=== PATIENT | male | born 1925 | race Caucasian/White ===

== ENCOUNTER 2017-02-11 20:52 | Inpatient (IN) | payer MEDICARE, BC ==
[~2017-02-11] VITALS: Ht 182.9 cm; Wt 73.9 kg
[2017-02-11 21:00] VITALS: BP 164/91
--- NOTE | 2017-02-11 21:00 | NUR ---
admitted pt from [facility], arrived by rustam[place]ical[place], pt alert,oriented x2 , hard of hearing but wears bilateral hearing aid.daughter at bedside.pt noted unsteady gait when transferring from [place] to bed.pictures taken noted few scabs and ecchymosis from the fall.vss,afebrile, denies any pain. oriented to call light ,scd,bed alarm, tv control.verbalized understanding.will continue to monitor,all needs attended.
[2017-02-11] MEDS ORDERED: Z GUARD REMEDY PASTE 57 GM TUBE TOP PRN (21:30)
[2017-02-11] MEDS ORDERED: LEVE500T9 PO (22:32)
[2017-02-11] MEDS ORDERED: TEMA30CA PO (22:33)
[2017-02-11] MEDS ORDERED: VENL75CA56 PO (22:37)
[2017-02-11] MEDS ORDERED: CETI-102 PO (22:42)
[2017-02-11] MEDS ORDERED: CHOL200010 PO (22:42)
[2017-02-11] MEDS ORDERED: PROP80CA PO (22:42)
[2017-02-11] MEDS ORDERED: OMEP20CA10 PO (22:42)
[2017-02-11] MEDS ORDERED: FINA5TAB11 PO (22:42)
[2017-02-11] MEDS ORDERED: LEVO175T7 PO (22:42)
[2017-02-11] MEDS ORDERED: TEMAZEPAM 15 MG CAPSULE PO PRN (23:45)
[2017-02-12] MEDS ORDERED: TEMAZEPAM 15 MG CAPSULE ONE (00:10)
[2017-02-12] MEDS ORDERED: LEVE500T9 PO (02:49)
--- NOTE | 2017-02-12 06:00 | NUR ---
uneventful night, pt gets up to void but reminded to use urinal. got disoriented couple of times that pt removed his clothing.had 2 episode of blood after voiding but no blood clot in the urine.no bleeding this morning noted.kept bed alarm active, scd applied,will continue to monitor.
[2017-02-12] MEDS ORDERED: PROPRANOLOL LA 80 MG CAP.SA.24H PO SCH (09:00)
[2017-02-12] MEDS: METOPROLOL TARTRATE 25 MG TABLET PO SCH ×2 (09:00→21:33)
[2017-02-12] MEDS: AMLODIPINE 5 MG TABLET PO SCH (09:00)
[2017-02-12 09:14] VITALS: BP 154/67
[2017-02-12] MEDS: LEVETIRACETAM 500 MG TABLET PO SCH ×2 (09:27→16:27)
[2017-02-12] MEDS: FUROSEMIDE 20 MG TABLET PO SCH (09:27)
[2017-02-12] MEDS: VENLAFAXINE XR 75 MG CAP.SR.24H PO SCH (09:27)
[2017-02-12] MEDS: CHOLECALCIFEROL 1,000 UNIT TABLET PO SCH ×3 (09:28→16:27)
[2017-02-12] MEDS: CETIRIZINE HCL 10 MG TABLET PO SCH (09:28)
[2017-02-12] MEDS: LEVOTHYROXINE SODIUM 175 MCG TABLET PO SCH (09:33)
--- NOTE | 2017-02-12 10:06 | NUR ---
pt had decreased blood pressure of 101/43. pt not given bp meds due to decreased blood pressure. will reassess for complications.
--- NOTE | 2017-02-12 14:24 | NUR ---
REHAB TEAM CONFERENCE 02/12/17
--- NOTE | 2017-02-12 18:24 | NUR ---
pt shown no signs of sundowning during shift. no loc changes. pt seen to have tremors on movement. pt put on seizure precautions by dr boogie. pt takes pills whole during the day. pt ate 100% of meals and was assessed by pt and ot. pt is min assist on walking with a walker and moderate assist on transfers. pt seen to have redness on bleeding around shaft of penis and was present on admission. wound seen to have less bleeding and was resolving. pt has not been seen by the nurse practitioner home assessments. contacted but dr does not call back. family states that he is getting better when he arrived. family wanted a psych consult. dr phillips ordered a neurology consult. pt went on the urinal but not had a bm today. will endorse new orders to ventilated rib fitter nurse.
[2017-02-12] MEDS ORDERED: BISACODYL 5 MG TABLET.DR PO PRN (18:45)
[2017-02-12] MEDS: FINASTERIDE 5 MG TABLET PO SCH (18:50)
[2017-02-12 20:34] VITALS: BP 130/78
[2017-02-12] MEDS: TEMAZEPAM 30 MG CAPSULE PO PRN (21:33)
[2017-02-12] MEDS: ACETAMINOPHEN 325 MG TABLET PO PRN (21:53)
[2017-02-12] MEDS ORDERED: ACETAMINOPHEN 325 MG TABLET ONE (22:06)
[2017-02-13] MEDS: PANTOPRAZOLE SODIUM 40 MG TABLET.DR PO SCH (05:48)
[2017-02-13] MEDS: LEVOTHYROXINE SODIUM 175 MCG TABLET PO SCH (05:48)
--- NOTE | 2017-02-13 06:30 | NUR ---
pt visited by son in law, converses appropriately, complains of headache 08/02 and called Md to obtain order,given 2 tylenol, assisted to toilet, ambulated with walker, noted with tremors,slept well, vss,afebrile, all needs attended ,bed alarm active at all times.
[2017-02-13 07:20] LABS: BASOPHILS % (AUTO) 0.6 % (0.0-2.0); EOSINOPHILS # (AUTO) 0.1 K/uL (0.0-0.7); EOSINOPHILS % (AUTO) 2.4 % (0.0-7.0); HEMATOCRIT 38.6 % (40-50); HEMOGLOBIN 12.6 G/DL (14.0-18.0); LYMPHOCYTES # (AUTO) 0.7 K/UL (0.8-4.8); LYMPHOCYTES % (AUTO) 12.5 % (20.5-51.5); MEAN CORPUSCULAR HEMOGLOBIN 27.1 UUG (27.0-31.0); MEAN CORPUSCULAR HGB CONC 33 g/dL (32.0-37.0); MEAN CORPUSCULAR VOLUME 82.9 FL (82.0-92.0); MONOCYTES # (AUTO) 0.4 K/UL (0.1-1.30); MONOCYTES % (AUTO) 6.2 % (0.0-11.0); NEUTROPHILS # (AUTO) 4.6 K/UL (1.8-8.9); NEUTROPHILS % (AUTO) 78.3 % (38.5-71.5); PLATELET COUNT (AUTO) 83 K/UL (150-450); RED BLOOD CELL COUNT(AUTO) 4.66 MIL/UL (4.7-6.1); WHITE BLOOD COUNT (AUTO) 5.8 K/UL (4.0-11.2)
[2017-02-13 08:00] VITALS: BP 119/79
[2017-02-13 08:10] LABS: ALANINE AMINOTRANSFERASE 12 U/L (16-63); ALKALINE PHOSPHATASE 47 U/L (50-136); ASPARTATE AMINOTRANSFERASE 12 U/L (15-37); BILIRUBIN,TOTAL 0.5 mg/dL (0.2-1.0); CARBON DIOXIDE 32 mmol/L (21-32); CHLORIDE 105 mmol/L (98-107); CHOLESTEROL 137 mg/dL (<200); CREATININE 0.9 mg/dL (0.6-1.3); GLUCOSE 110 mg/dL (74-106); HDL CHOLESTEROL 40 mg/dL (40-60); MAGNESIUM 1.5 mg/dL (1.8-2.4); PHOSPHOROUS 4.1 mg/dL (2.5-4.9); TOTAL PROTEIN, SERUM 6.1 g/dL (6.4-8.2); TRIGLYCERIDES 174 MG/DL (30-150); UREA NITROGEN, BLOOD 14 mg/dL (7-18)
[2017-02-13] MEDS: METOPROLOL TARTRATE 25 MG TABLET PO SCH ×2 (08:42→20:43)
[2017-02-13] MEDS: VENLAFAXINE XR 75 MG CAP.SR.24H PO SCH (08:42)
[2017-02-13] MEDS: LEVETIRACETAM 500 MG TABLET PO SCH ×2 (08:42→17:33)
[2017-02-13] MEDS: AMLODIPINE 5 MG TABLET PO SCH (08:42)
[2017-02-13] MEDS: CHOLECALCIFEROL 1,000 UNIT TABLET PO SCH ×3 (08:42→17:33)
[2017-02-13] MEDS: CETIRIZINE HCL 10 MG TABLET PO SCH (08:43)
[2017-02-13] MEDS: FUROSEMIDE 20 MG TABLET PO SCH (08:43)
--- NOTE | 2017-02-13 08:45 | NUR ---
Received patient awake, alert and oriented. Dangle feet upon breakfast. Encouraged to call for needs and if he needs to use bathroom. Call light within reach.
[2017-02-13 08:53] LABS: THYROID STIMULATING HORMONE 5.851 mIU/mL (0.358-3.740)
[2017-02-13 09:44] LABS: EOSINOPHILS % (MANUAL) 2 % (0-8); LYMPHOCYTES % (MANUAL) 7 % (20-40); MONOCYTES % (MANUAL) 2 % (2-10); NEUTROPHILS % (MANUAL) 89 % (42-75)
--- NOTE | 2017-02-13 10:52 | NUR ---
Up with speech therapist. No discomfort or pain noted. Able to transfer with minimum assistance.
[2017-02-13] MEDS ORDERED: MAGNESIUM OXIDE 400 MG TABLET PO ONE (12:45)
--- NOTE | 2017-02-13 16:00 | NUR ---
WITH HEAD ACHE RATED 6/10. VSS. TYLENOL PRN GIVEN
[2017-02-13] MEDS: FINASTERIDE 5 MG TABLET PO SCH (17:33)
[2017-02-13] MEDS: ACETAMINOPHEN 325 MG TABLET PO PRN (17:33)
[2017-02-13 20:01] VITALS: BP 127/77
[2017-02-13] MEDS: TEMAZEPAM 30 MG CAPSULE PO PRN (20:43)
[2017-02-14] MEDS: PANTOPRAZOLE SODIUM 40 MG TABLET.DR PO SCH (05:52)
[2017-02-14] MEDS: LEVOTHYROXINE SODIUM 175 MCG TABLET PO SCH (05:52)
[2017-02-14 07:28] VITALS: BP 129/70
[2017-02-14] MEDS: CHOLECALCIFEROL 1,000 UNIT TABLET PO SCH ×3 (08:50→17:36)
[2017-02-14] MEDS: CETIRIZINE HCL 10 MG TABLET PO SCH (08:50)
[2017-02-14] MEDS: VENLAFAXINE XR 75 MG CAP.SR.24H PO SCH (08:50)
[2017-02-14] MEDS: FUROSEMIDE 20 MG TABLET PO SCH (08:50)
[2017-02-14] MEDS: LEVETIRACETAM 500 MG TABLET PO SCH ×2 (08:50→17:36)
[2017-02-14] MEDS: AMLODIPINE 5 MG TABLET PO SCH (08:50)
[2017-02-14] MEDS: METOPROLOL TARTRATE 25 MG TABLET PO SCH ×2 (08:51→21:17)
--- NOTE | 2017-02-14 15:56 | NUR ---
Bio: SW met with pt at beside to assess for needs and provide support. Pt is a 89-year-old male admitted to ARU for functional decline and impaired mobility after family found pt on the floor. Pt reported he had an accidental fall while trying to get out of bed. He stated that he hit his head and was unable to stand up. 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 Psych: Pt appeared alert and oriented x4 during interview. He presented in a motivated mood, but reported that he felt tired after doing physical therapy. Pt has been in the hospital since February 11, 2017. There is no mental illness history reported. Pt is pleasant, calm, and cooperative. Pt appears to be coping well and reported "everything is wonderful here." Social: Pt lives at home with his daughter and her family. Pt reports his family is very supportive, and that his daughter was the one who found him on the floor. Pt's daughter and son-in-law frequently visit pt in ARU. Pt stated that he would like to become more independent. He stated he would like to become stronger so that he can walk to the store to "buy rene" and do "important things." Per chart, pt had Access . Goals: Pt reports that his goal is to 'become stronger". SS: SW engaged in active listening. SW provided emotional support and counseling. SW will encourage pt to comply with rehab goals.
[2017-02-14] MEDS: FINASTERIDE 5 MG TABLET PO SCH (17:36)
--- NOTE | 2017-02-14 18:41 | NUR ---
no changes on med. pt changed as needed and used urinal as needed. wound on penis has improved and no signs of bleeding. pt continues to be well oriented compared to previous days. pt took meds as prescribed and participated in therapy. pt did not leave the bed when instructed. family visited and wanted eye medications brought from home. order put in system. awaiting pharmacy to verify .
[2017-02-14 19:43] VITALS: BP 124/73
[2017-02-14] MEDS: MAGNESIUM OXIDE 400 MG TABLET PO SCH (21:17)
[2017-02-14] MEDS: TEMAZEPAM 30 MG CAPSULE PO PRN (21:18)
[2017-02-14] MEDS: PRESERVISION AREDS 2 FORMULA PO SCH (23:19)
[2017-02-15] MEDS: LEVOTHYROXINE SODIUM 175 MCG TABLET PO SCH (06:09)
[2017-02-15] MEDS: PANTOPRAZOLE SODIUM 40 MG TABLET.DR PO SCH (06:10)
--- NOTE | 2017-02-15 06:30 | NUR ---
PT SLEPT WELL, USES URINAL OVERNIGHT.NO BM, REQUESTING TO GET SHAVED DID IT HIMSELF BUT NOTED STILL HAVING TREMORS,SO I TOOK OVER THE SHAVING. KEPT CLEAN AND DRY,ALL NEEDS ATTENDED.
[2017-02-15 07:30] VITALS: BP 117/71
--- NOTE | 2017-02-15 08:50 | NUR ---
Received patient awake, alert and oriented x3. No complaints of pain/ discomfort at the moment. Call light within reach. Encouraged to call for needs. Able to take medications as prescribed, tolerated breakfast well.
[2017-02-15] MEDS: VENLAFAXINE XR 75 MG CAP.SR.24H PO SCH (09:05)
[2017-02-15] MEDS: LEVETIRACETAM 500 MG TABLET PO SCH ×2 (09:05→17:06)
[2017-02-15] MEDS: CYANOCOBALAMIN 1000 MCG/ML VIAL IM SCH (09:05)
[2017-02-15] MEDS: FUROSEMIDE 20 MG TABLET PO SCH (09:05)
[2017-02-15] MEDS: METOPROLOL TARTRATE 25 MG TABLET PO SCH ×2 (09:06→20:00)
[2017-02-15] MEDS: CETIRIZINE HCL 10 MG TABLET PO SCH (09:06)
[2017-02-15] MEDS: CHOLECALCIFEROL 1,000 UNIT TABLET PO SCH ×3 (09:06→17:06)
[2017-02-15] MEDS: PRESERVISION AREDS 2 FORMULA PO SCH ×2 (09:07→17:06)
[2017-02-15] MEDS: AMLODIPINE 5 MG TABLET PO SCH (09:07)
--- NOTE | 2017-02-15 12:58 | NUR ---
Asleep, non-labored breathing. Due medications given. Patient claimed he felt tired after therapy. Call light within reach.
--- NOTE | 2017-02-15 16:34 | NUR ---
Tolerated therapy well. Was able to transfer to toilet with minimum assistance. Awake, alert, resting in bed. No complaints of discomfort. Call light within reach.
[2017-02-15] MEDS: FINASTERIDE 5 MG TABLET PO SCH (17:06)
--- NOTE | 2017-02-15 19:30 | NUR ---
PT ALERT AND ORIENTED IN BED. NO DISTRESS NOTED. SON AT BEDSIDE. COMPLIANT WITH NURSING CARE. SAFETY MAINTAINED. CALL LIGHT WITHIN REACH. WILL CONTINUE TO MONITOR.
[2017-02-15] MEDS: MAGNESIUM OXIDE 400 MG TABLET PO SCH (20:00)
[2017-02-15] MEDS: TEMAZEPAM 30 MG CAPSULE PO PRN (20:04)
[2017-02-15 21:00] VITALS: BP 123/80
[2017-02-16] MEDS: LEVOTHYROXINE SODIUM 175 MCG TABLET PO SCH (06:12)
[2017-02-16] MEDS: PANTOPRAZOLE SODIUM 40 MG TABLET.DR PO SCH (06:12)
--- NOTE | 2017-02-16 07:00 | NUR ---
PT RESTING IN BED. NO DISTRESS NOTED. CLEAN AND DRY. COMPLIANT WITH NURSING CARE. USED URINAL THROUGHOUT THE NIGHT. NO SIGNIFICANT CHANGES THROUGHOUT THE NIGHT. SAFETY MAINTAINED. CALL LIGHT WITHIN REACH.
[2017-02-16 07:10] VITALS: BP 133/72
--- NOTE | 2017-02-16 08:30 | NUR ---
Received patient awake, alert and oriented. Unsteady gait. Assisted to bathroom. No complaints of pain. Not in any form of distress. Call light within reach. Encouraged to call for needs.
[2017-02-16] MEDS: PRESERVISION AREDS 2 FORMULA PO SCH ×2 (08:31→17:56)
[2017-02-16] MEDS: VENLAFAXINE XR 75 MG CAP.SR.24H PO SCH (08:31)
[2017-02-16] MEDS: CHOLECALCIFEROL 1,000 UNIT TABLET PO SCH ×3 (08:31→18:10)
[2017-02-16] MEDS: FUROSEMIDE 20 MG TABLET PO SCH (08:31)
[2017-02-16] MEDS: LEVETIRACETAM 500 MG TABLET PO SCH ×2 (08:31→17:56)
[2017-02-16] MEDS: METOPROLOL TARTRATE 25 MG TABLET PO SCH ×2 (08:32→20:37)
[2017-02-16] MEDS: CETIRIZINE HCL 10 MG TABLET PO SCH (08:32)
[2017-02-16] MEDS: AMLODIPINE 5 MG TABLET PO SCH (08:33)
[2017-02-16] MEDS: CYANOCOBALAMIN 1000 MCG/ML VIAL IM SCH (08:36)
[2017-02-16] MEDS: FINASTERIDE 5 MG TABLET PO SCH (17:56)
--- NOTE | 2017-02-16 18:00 | NUR ---
Tolerated therapy well. With family at bedside. All needs attended to promptly.
[2017-02-16 20:31] VITALS: BP 114/63
[2017-02-16] MEDS: TEMAZEPAM 30 MG CAPSULE PO PRN (20:36)
[2017-02-16] MEDS: MAGNESIUM OXIDE 400 MG TABLET PO SCH (20:37)
[2017-02-17] MEDS: LEVOTHYROXINE SODIUM 175 MCG TABLET PO SCH (06:05)
[2017-02-17] MEDS: PANTOPRAZOLE SODIUM 40 MG TABLET.DR PO SCH (06:05)
--- NOTE | 2017-02-17 06:40 | NUR ---
PT SLEPT WELL, REQUESTED XANAX LAST NIGHT. NO BM DIAPER CHANGED ,KEPT CLEAN AND DRY. INCISION LEFT OPEN TO AIR WITH ROMY INTACT, SKIN STILL BRUISING.VSS,AFEBRILE, KEPT ATTENDED, CALL LIGHT AT REACHED. Addendum: 02/17/17 at 0647 by DESTINY LIM RN WRONG ENTRY OF ABOVE NOTES
[2017-02-17 07:40] VITALS: BP 142/66
[2017-02-17] MEDS: AMLODIPINE 5 MG TABLET PO SCH (09:06)
[2017-02-17] MEDS: LEVETIRACETAM 500 MG TABLET PO SCH ×2 (09:06→17:24)
[2017-02-17] MEDS: CHOLECALCIFEROL 1,000 UNIT TABLET PO SCH ×3 (09:06→17:24)
[2017-02-17] MEDS: CETIRIZINE HCL 10 MG TABLET PO SCH (09:07)
[2017-02-17] MEDS: VENLAFAXINE XR 75 MG CAP.SR.24H PO SCH (09:07)
[2017-02-17] MEDS: FUROSEMIDE 20 MG TABLET PO SCH (09:07)
[2017-02-17] MEDS: METOPROLOL TARTRATE 25 MG TABLET PO SCH ×2 (09:10→20:09)
[2017-02-17] MEDS: PRESERVISION AREDS 2 FORMULA PO SCH ×2 (09:10→17:25)
[2017-02-17] MEDS: CYANOCOBALAMIN 1000 MCG/ML VIAL IM SCH (09:13)
--- NOTE | 2017-02-17 11:00 | NUR ---
patient alert and ox3 , make needs known. Compliant with medications. Ambulate to the restroom with min.assist x1 using FWW. Had a shower.
[2017-02-17] MEDS: FINASTERIDE 5 MG TABLET PO SCH (17:24)
[2017-02-17] MEDS: MAGNESIUM OXIDE 400 MG TABLET PO SCH (20:19)
[2017-02-17 20:56] VITALS: BP 117/72
[2017-02-17 22:00] VITALS: BP 117/72
[2017-02-17] MEDS: TEMAZEPAM 30 MG CAPSULE PO PRN (23:26)
[2017-02-18] MEDS: PANTOPRAZOLE SODIUM 40 MG TABLET.DR PO SCH (06:16)
[2017-02-18] MEDS: LEVOTHYROXINE SODIUM 175 MCG TABLET PO SCH (06:16)
[2017-02-18 08:00] VITALS: BP 135/88
[2017-02-18 08:21] VITALS: BP 114/72
[2017-02-18] MEDS: CHOLECALCIFEROL 1,000 UNIT TABLET PO SCH ×3 (09:00→18:05)
[2017-02-18] MEDS: CYANOCOBALAMIN 1000 MCG/ML VIAL IM SCH (09:00)
[2017-02-18] MEDS: CETIRIZINE HCL 10 MG TABLET PO SCH (09:00)
[2017-02-18] MEDS: VENLAFAXINE XR 75 MG CAP.SR.24H PO SCH (09:00)
[2017-02-18] MEDS: FUROSEMIDE 20 MG TABLET PO SCH (09:00)
[2017-02-18] MEDS: AMLODIPINE 5 MG TABLET PO SCH (09:00)
[2017-02-18] MEDS: LEVETIRACETAM 500 MG TABLET PO SCH ×2 (09:00→18:05)
[2017-02-18] MEDS: METOPROLOL TARTRATE 25 MG TABLET PO SCH ×2 (09:00→20:57)
[2017-02-18] MEDS ORDERED: ASPIRIN EC 81 MG TABLET.DR PO SCH (09:00)
[2017-02-18] MEDS: PRESERVISION AREDS 2 FORMULA PO SCH ×2 (09:01→18:05)
[2017-02-18] MEDS: FINASTERIDE 5 MG TABLET PO SCH (18:05)
--- NOTE | 2017-02-18 19:30 | NUR ---
RECEIVED PATIENT AWAKE, ALERT, AND ORIENTED X3. COMFORTABLE WITHOUT C/O PAIN, RESPIRATORY DISTRESS OR ANY OTHER C/O. AMBULATED TO TOILET WITH WALKER AND STANDBY ASSIST WITH SLIGHTLY UNSTEADY GAIT. SMALL INCONTINENCE IN PULL UPS, AND THEN VOIDED LARGE AMOUNT URINE IN TOILET. HAD SOFT, FORMED, BROWN BM. PM SNACK REFUSED. PM CARE DONE. REQUESTING SLEEPER AT LATER TIME TONIGHT. CALL LIGHT WITHIN REACH. INSTRUCTED TO CALL RN WHEN WANTING TO GET OOB. VERBALIZES UNDERSTANDING. BED ALARM ON AAT. APPEARS IN NO APPARENT DISTRESS AT THIS TIME
[2017-02-18 20:27] VITALS: BP 125/64
[2017-02-18] MEDS: MAGNESIUM OXIDE 400 MG TABLET PO SCH (20:56)
[2017-02-18] MEDS: TEMAZEPAM 30 MG CAPSULE PO PRN (23:25)
--- NOTE | 2017-02-19 05:45 | NUR ---
SLEPT WELL LAST NIGHT WITH SLEEPING PILL. AMBULATED TO TOILET WITH ASSIST OF WALKER AND CONTACT GUARD ASSIST WITH SLIGHTLY UNSTEADY GAIT. HAD ONE MODERATE SOFT, FORMED BROWN BM. INCONTINENT X2, A SMALL AMOUNT IN PULL UPS, BUT KNOWS WHEN HE HAS TO VOID IN TOILET. A BIT FORGETFUL IN ASKING FOR HELP WHEN GETTING OOB. BED ALARM ON AND CALL LIGHT WITHIN REACH AAT TO BE PROACTIVE IN PREVENTION OF FALLS/ INJURY. NO C/O DISCOMFORT OR OTHER COMPLAINTS THIS MORNING. AWAITING THE IDT MEETING THIS AFTERNOON.
[2017-02-19] MEDS: PANTOPRAZOLE SODIUM 40 MG TABLET.DR PO SCH (06:42)
[2017-02-19] MEDS: LEVOTHYROXINE SODIUM 175 MCG TABLET PO SCH (06:42)
[2017-02-19 08:00] VITALS: BP 145/61
--- NOTE | 2017-02-19 08:00 | NUR ---
RECEIVED PATIENT AWAKE, ALERT AND ORIENTED. NO COMPLAINTS OF PAIN NOT IN ANY FORM OF DISTRESS. CALL LIGHT WITHIN REACH.
[2017-02-19] MEDS: LEVETIRACETAM 500 MG TABLET PO SCH ×2 (08:44→17:20)
[2017-02-19] MEDS: CHOLECALCIFEROL 1,000 UNIT TABLET PO SCH ×3 (08:44→17:20)
[2017-02-19] MEDS: CETIRIZINE HCL 10 MG TABLET PO SCH (08:44)
[2017-02-19] MEDS: CYANOCOBALAMIN 1000 MCG/ML VIAL IM SCH (08:44)
[2017-02-19] MEDS: METOPROLOL TARTRATE 25 MG TABLET PO SCH ×2 (08:46→21:09)
[2017-02-19] MEDS: FUROSEMIDE 20 MG TABLET PO SCH (08:46)
[2017-02-19] MEDS: VENLAFAXINE XR 75 MG CAP.SR.24H PO SCH (08:47)
[2017-02-19] MEDS: PRESERVISION AREDS 2 FORMULA PO SCH ×2 (08:48→17:20)
[2017-02-19] MEDS: AMLODIPINE 5 MG TABLET PO SCH (08:48)
--- NOTE | 2017-02-19 14:32 | NUR ---
Rehab Team Conference 02/19/17
--- NOTE | 2017-02-19 17:00 | NUR ---
ABLE TO TOLERATE THERAPY WELL. ATTENDED TO NEEDS PROMPTLY. ENCOURAGED TO CALL IF NE NEEDS ANYTHING OR IF NEEDS TO USE BATHROOM.
[2017-02-19] MEDS: FINASTERIDE 5 MG TABLET PO SCH (17:20)
--- NOTE | 2017-02-19 19:30 | NUR ---
NSG:PT RECEIVED ALERT AND ORIENTED SITTING UP IN BED IN BED. NO DISTRESS NOTED. COMPLIANT WITH NURSING CARE. SAFETY MAINTAINED. CALL LIGHT WITHIN REACH. WILL CONTINUE TO MONITOR.
[2017-02-19 20:30] VITALS: BP 117/65
[2017-02-19] MEDS: MAGNESIUM OXIDE 400 MG TABLET PO SCH (21:09)
[2017-02-19] MEDS: TEMAZEPAM 30 MG CAPSULE PO PRN (21:54)
--- NOTE | 2017-02-19 21:54 | NUR ---
NSG: PATIENT UNABLE TO SLEEP RESTORIL 30 MG PO GIVEN PER PATIENT REQUEST.
--- NOTE | 2017-02-19 22:54 | NUR ---
nsg: patient sleeping now. prn effective.
--- NOTE | 2017-02-20 02:27 | NUR ---
nsg: patient sleeping eye close.
[2017-02-20] MEDS: LEVOTHYROXINE SODIUM 175 MCG TABLET PO SCH (06:32)
[2017-02-20] MEDS: PANTOPRAZOLE SODIUM 40 MG TABLET.DR PO SCH (06:32)
--- NOTE | 2017-02-20 06:45 | NUR ---
nsg: Remain calm and cooperative. slept well after sleeping meds given.assisted with adl's. unsteady gait. continue monitoring for safety and pain.
[2017-02-20 07:28] LABS: CARBON DIOXIDE 32 mmol/L (21-32); CHLORIDE 101 mmol/L (98-107); CREATININE 1.1 mg/dL (0.6-1.3); GLUCOSE 107 mg/dL (74-106); MAGNESIUM 1.9 mg/dL (1.8-2.4); POTASSIUM 4.1 mmol/L (3.5-5.1); UREA NITROGEN, BLOOD 26 mg/dL (7-18)
[2017-02-20 07:37] LABS: BASOPHILS % (AUTO) 0.4 % (0.0-2.0); EOSINOPHILS # (AUTO) 0.2 K/uL (0.0-0.7); EOSINOPHILS % (AUTO) 2.1 % (0.0-7.0); HEMATOCRIT 41.6 % (40-50); HEMOGLOBIN 13.7 G/DL (14.0-18.0); LYMPHOCYTES # (AUTO) 0.8 K/UL (0.8-4.8); LYMPHOCYTES % (AUTO) 10.5 % (20.5-51.5); MEAN CORPUSCULAR HEMOGLOBIN 27.2 UUG (27.0-31.0); MEAN CORPUSCULAR HGB CONC 33 g/dL (32.0-37.0); MEAN CORPUSCULAR VOLUME 82.5 FL (82.0-92.0); MONOCYTES # (AUTO) 0.5 K/UL (0.1-1.30); MONOCYTES % (AUTO) 7.1 % (0.0-11.0); NEUTROPHILS # (AUTO) 6.2 K/UL (1.8-8.9); NEUTROPHILS % (AUTO) 79.9 % (38.5-71.5); PLATELET COUNT (AUTO) 82 K/UL (150-450); RED BLOOD CELL COUNT(AUTO) 5.05 MIL/UL (4.7-6.1); WHITE BLOOD COUNT (AUTO) 7.7 K/UL (4.0-11.2)
[2017-02-20 07:53] LABS: BAND % (MANUAL) 2 % (0-10); EOSINOPHILS % (MANUAL) 1 % (0-8); LYMPHOCYTES % (MANUAL) 14 % (20-40); MONOCYTES % (MANUAL) 6 % (2-10); NEUTROPHILS % (MANUAL) 77 % (42-75)
[2017-02-20 08:00] VITALS: BP 126/77
[2017-02-20] MEDS: PRESERVISION AREDS 2 FORMULA PO SCH ×2 (08:28→17:12)
[2017-02-20] MEDS: VENLAFAXINE XR 75 MG CAP.SR.24H PO SCH (08:29)
[2017-02-20] MEDS: CETIRIZINE HCL 10 MG TABLET PO SCH (08:29)
[2017-02-20] MEDS: LEVETIRACETAM 500 MG TABLET PO SCH ×2 (08:29→17:12)
[2017-02-20] MEDS: FUROSEMIDE 20 MG TABLET PO SCH (08:29)
[2017-02-20] MEDS: METOPROLOL TARTRATE 25 MG TABLET PO SCH ×2 (08:30→21:32)
[2017-02-20] MEDS: AMLODIPINE 5 MG TABLET PO SCH (08:30)
[2017-02-20] MEDS: CYANOCOBALAMIN 1000 MCG/ML VIAL IM SCH (08:30)
[2017-02-20] MEDS: CHOLECALCIFEROL 1,000 UNIT TABLET PO SCH ×3 (08:30→17:12)
--- NOTE | 2017-02-20 08:33 | NUR ---
RECEIVED PATIENT AWAKE, ALERT AND ORIENTED. NO COMPLAINTS OF PAIN OR DISCOMFORT AT THIS TIME. CALL LIGHT WITHIN REACH. ENCOURAGED TO CALL FOR NEEDS.
--- NOTE | 2017-02-20 12:00 | NUR ---
WITH FAMILY AT BEDSIDE. NO COMPLAINTS OF DISCOMFORT. CALL LIGHT WITHIN REACH
--- NOTE | 2017-02-20 15:37 | NUR ---
PATIENT RESTING IN BED. ATTENDED TO NEEDS PROMPTLY.
[2017-02-20] MEDS: FINASTERIDE 5 MG TABLET PO SCH (17:12)
[2017-02-20 20:38] VITALS: BP 112/74
[2017-02-20] MEDS: MAGNESIUM OXIDE 400 MG TABLET PO SCH (21:32)
[2017-02-20] MEDS: TEMAZEPAM 30 MG CAPSULE PO PRN (21:32)
[2017-02-21] MEDS: LEVOTHYROXINE SODIUM 175 MCG TABLET PO SCH (06:24)
[2017-02-21] MEDS: PANTOPRAZOLE SODIUM 40 MG TABLET.DR PO SCH (06:24)
--- NOTE | 2017-02-21 07:15 | NUR ---
Received pt in bed, sleeping easily awaken, a/o x3, No acute distress noted. HOB elevated, Denies any pain or discomfort, Call light and personal belongings within reach, bed kept low/locked.
[2017-02-21 07:44] VITALS: BP 128/78
[2017-02-21] MEDS: CYANOCOBALAMIN 1000 MCG/ML VIAL IM SCH (09:19)
[2017-02-21] MEDS: PRESERVISION AREDS 2 FORMULA PO SCH ×2 (09:19→17:27)
[2017-02-21] MEDS: LEVETIRACETAM 500 MG TABLET PO SCH ×2 (09:21→17:27)
[2017-02-21] MEDS: FUROSEMIDE 20 MG TABLET PO SCH (09:21)
[2017-02-21] MEDS: CETIRIZINE HCL 10 MG TABLET PO SCH (09:22)
[2017-02-21] MEDS: AMLODIPINE 5 MG TABLET PO SCH (09:22)
[2017-02-21] MEDS: METOPROLOL TARTRATE 25 MG TABLET PO SCH ×2 (09:22→20:39)
[2017-02-21] MEDS: VENLAFAXINE XR 75 MG CAP.SR.24H PO SCH (09:22)
[2017-02-21] MEDS: CHOLECALCIFEROL 1,000 UNIT TABLET PO SCH ×3 (11:47→18:05)
--- NOTE | 2017-02-21 14:33 | NUR ---
Pt picked up by Ambulance for Eye appointment, report given. No acute distress noted.
--- NOTE | 2017-02-21 17:00 | NUR ---
Pt back from eye appt, no distress noted. v/s stable.
[2017-02-21] MEDS: FINASTERIDE 5 MG TABLET PO SCH (17:27)
--- NOTE | 2017-02-21 18:17 | NUR ---
PT IN BED READING NEWS PAPER, NO ACUTE DISTRESS NOTED, HOB ELEVATED, CALL LIGHT WITHIN REACH, BED LOW/LOCKED POSITION.
[2017-02-21] MEDS: ACETAMINOPHEN 325 MG TABLET PO PRN (20:38)
[2017-02-21] MEDS: MAGNESIUM OXIDE 400 MG TABLET PO SCH (20:38)
[2017-02-21 20:44] VITALS: BP 117/65
--- NOTE | 2017-02-21 20:45 | NUR ---
PT'S A/A/O X2-3 DENIED OF PAIN BUT STATED THAT"I WENT TO SEE MY EYE DOCTOR TODAY";PT ASKED FOR SLEEPING PILL;EDUCATED TO PT;WILL GET MAXIMO AND GIVE TO HIM PRIOR GOING TO BED.ASSISTED FOR PM CARE AT THE BEDSIDE;PT'S COOPERATIVE W/ASSISTANCE.KEPT COMFORT.BED ALARM'S ON.CALL-LIGHT WITHIN REACH.
[2017-02-21] MEDS: TEMAZEPAM 30 MG CAPSULE PO PRN (21:34)
--- NOTE | 2017-02-21 21:35 | NUR ---
GAVE RESTORIL 30 MG PO X1 TO PT PT REQUESTED;EDUCATED TO PT,HE VERBALIZED UNDERSTANDING AND TOLERATED WELL NOTED.KEPT COMFORT.BED ALARM'S ON.CALL-LIGHT WITHIN REACH.
--- NOTE | 2017-02-22 06:10 | NUR ---
ASSISTED FOR AM CARE ON BED;PT'S COOPERATIVE W/ASSISTANCE,DENIED OF PAIN.NO DISTRESS NOTED IN THE SHIFT.PT REMAINED FREE FROM INJURY NOTED.BED ALARM'S ON.PT SLEPT WELL DURING OF THE NIGHT.
[2017-02-22] MEDS: LEVOTHYROXINE SODIUM 175 MCG TABLET PO SCH (06:24)
[2017-02-22] MEDS: PANTOPRAZOLE SODIUM 40 MG TABLET.DR PO SCH (06:24)
--- NOTE | 2017-02-22 07:15 | NUR ---
PT SLEEPING IN BED, AWAKENS TO NAME, NO NEEDS AT THIS TIME, ALL SAFETY MEASURES ATTENDED TO, CALL LIGHT IN REACH WILL CONTINUE TO MONITOR
[2017-02-22] MEDS: FUROSEMIDE 20 MG TABLET PO SCH (08:16)
[2017-02-22] MEDS: VENLAFAXINE XR 75 MG CAP.SR.24H PO SCH (08:16)
[2017-02-22] MEDS: CYANOCOBALAMIN 1000 MCG/ML VIAL IM SCH (08:16)
[2017-02-22] MEDS: CETIRIZINE HCL 10 MG TABLET PO SCH (08:16)
[2017-02-22] MEDS: CHOLECALCIFEROL 1,000 UNIT TABLET PO SCH ×3 (08:16→17:05)
[2017-02-22] MEDS: LEVETIRACETAM 500 MG TABLET PO SCH ×2 (08:16→17:05)
[2017-02-22] MEDS: AMLODIPINE 5 MG TABLET PO SCH (08:19)
[2017-02-22] MEDS: METOPROLOL TARTRATE 25 MG TABLET PO SCH ×2 (08:20→21:14)
[2017-02-22 08:27] VITALS: BP 128/72
[2017-02-22] MEDS: PRESERVISION AREDS 2 FORMULA PO SCH ×2 (08:43→17:05)
[2017-02-22 08:44] VITALS: BP 148/67
--- NOTE | 2017-02-22 15:50 | NUR ---
PT FORGETFUL AT TIMES, STOOD UP TO USE URINAL SEVERAL TIMES WITHOUT CALLING FOR HELP, BED ALARM WENT OFF AND WAS REMINDED EACH TIME TO CALL NURSE FOR ASSISTANCE, CALL LIGHT IN REACH, FAMILY MEMBER AT BEDSIDE
[2017-02-22] MEDS: FINASTERIDE 5 MG TABLET PO SCH (17:05)
--- NOTE | 2017-02-22 18:47 | NUR ---
NO CHANGES NOTED THROUGHOUT SHIFT
--- NOTE | 2017-02-22 19:40 | NUR ---
PT RECEIVED IN BED, AWAKE. A/OX3. ABLE TO MAKE NEEDS KNOWN. V/S STABLE. IN ACUTE DISTRESS. NO C/O PAIN. SAFETY MEASURES IMPLEMENTED. BED ALARM SET. CALL LIGHT WITHIN REACH.
[2017-02-22 20:07] VITALS: BP 114/62
[2017-02-22] MEDS: MAGNESIUM OXIDE 400 MG TABLET PO SCH (21:14)
[2017-02-22] MEDS: TEMAZEPAM 30 MG CAPSULE PO PRN (21:14)
--- NOTE | 2017-02-22 21:15 | NUR ---
PT C/O BEING UNABLE TO SLEEP. PT REQUEST SLEEP AID. RESTORIL ADMINISTERED ORDERED.
--- NOTE | 2017-02-23 06:08 | NUR ---
END OF SHIFT NOTES. PT SLEPT WELL THROUGHOUT SHIFT. ALL NEEDS ATTENDED. SAFETY MAINTAINED. CALL LIGHT WITHIN REACH.
[2017-02-23] MEDS: LEVOTHYROXINE SODIUM 175 MCG TABLET PO SCH (06:26)
[2017-02-23] MEDS: PANTOPRAZOLE SODIUM 40 MG TABLET.DR PO SCH (06:26)
[2017-02-23 07:10] VITALS: BP 120/74
--- NOTE | 2017-02-23 08:00 | NUR ---
Pt received awake,alert,oriented.Denies pain,discomfort.Assisted to bathroom with minimal assistance.Will continue to monitor.
[2017-02-23] MEDS: CYANOCOBALAMIN 1000 MCG/ML VIAL IM SCH (09:43)
[2017-02-23] MEDS: CETIRIZINE HCL 10 MG TABLET PO SCH (09:44)
[2017-02-23] MEDS: VENLAFAXINE XR 75 MG CAP.SR.24H PO SCH (09:44)
[2017-02-23] MEDS: AMLODIPINE 5 MG TABLET PO SCH (09:44)
[2017-02-23] MEDS: FUROSEMIDE 20 MG TABLET PO SCH (09:44)
[2017-02-23] MEDS: CHOLECALCIFEROL 1,000 UNIT TABLET PO SCH ×3 (09:44→16:59)
[2017-02-23] MEDS: LEVETIRACETAM 500 MG TABLET PO SCH ×2 (09:45→17:00)
[2017-02-23] MEDS: METOPROLOL TARTRATE 25 MG TABLET PO SCH ×2 (09:45→20:51)
[2017-02-23] MEDS: PRESERVISION AREDS 2 FORMULA PO SCH ×2 (09:46→17:01)
[2017-02-23] MEDS: FINASTERIDE 5 MG TABLET PO SCH (17:00)
--- NOTE | 2017-02-23 20:00 | NUR ---
RECEIVED PT. AWAKE ALERT & ORIENTED X3 W/ PLEASANT PERSONALITY. DENIES PAIN. ASSISTED TO BATH ROOM W/ MINIMAL ASSISTANCE W/ WALKER. NOT IN ANY DISTRESS.
[2017-02-23] MEDS: MAGNESIUM OXIDE 400 MG TABLET PO SCH (20:50)
[2017-02-23 20:56] VITALS: BP 113/60
--- NOTE | 2017-02-24 05:00 | NUR ---
RESTING QUITELY. NOT IN ANY DISTRESS.
[2017-02-24] MEDS: PANTOPRAZOLE SODIUM 40 MG TABLET.DR PO SCH (06:41)
[2017-02-24] MEDS: LEVOTHYROXINE SODIUM 175 MCG TABLET PO SCH (06:41)
[2017-02-24 07:00] VITALS: BP 127/77
[2017-02-24] MEDS: VENLAFAXINE XR 75 MG CAP.SR.24H PO SCH (08:36)
[2017-02-24] MEDS: LEVETIRACETAM 500 MG TABLET PO SCH ×2 (08:36→17:33)
[2017-02-24] MEDS: FUROSEMIDE 20 MG TABLET PO SCH (08:36)
[2017-02-24] MEDS: CETIRIZINE HCL 10 MG TABLET PO SCH (08:36)
[2017-02-24] MEDS: CHOLECALCIFEROL 1,000 UNIT TABLET PO SCH ×3 (08:36→17:33)
[2017-02-24] MEDS: CYANOCOBALAMIN 1000 MCG/ML VIAL IM SCH (08:37)
[2017-02-24] MEDS: PRESERVISION AREDS 2 FORMULA PO SCH ×2 (08:39→17:33)
[2017-02-24] MEDS: METOPROLOL TARTRATE 25 MG TABLET PO SCH ×2 (08:47→21:06)
[2017-02-24] MEDS: AMLODIPINE 5 MG TABLET PO SCH (08:48)
--- NOTE | 2017-02-24 10:00 | NUR ---
Pt remains awake,alert,oriented.Denies pain,discomfort.Requires minimal assistance.Will continue to monitor.
--- NOTE | 2017-02-24 17:00 | NUR ---
Called regarding pt daughter request to medicate pt prior to procedure tomorrow.New orders received.
[2017-02-24] MEDS: FINASTERIDE 5 MG TABLET PO SCH (17:33)
--- NOTE | 2017-02-24 20:00 | NUR ---
A/a/o times 4 helped ambulate to br with walker, i good mood.
[2017-02-24 20:10] VITALS: BP 142/66
[2017-02-24] MEDS: MAGNESIUM OXIDE 400 MG TABLET PO SCH (21:06)
--- NOTE | 2017-02-25 05:02 | NUR ---
Easily awakens, confused at times. Slept most of the night got up a few times to urinate.Able to move about in bed on his own
[2017-02-25] MEDS: LEVOTHYROXINE SODIUM 175 MCG TABLET PO SCH (06:36)
[2017-02-25] MEDS: PANTOPRAZOLE SODIUM 40 MG TABLET.DR PO SCH (06:36)
[2017-02-25 07:35] VITALS: BP 134/70
[2017-02-25] MEDS: CETIRIZINE HCL 10 MG TABLET PO SCH (09:07)
[2017-02-25] MEDS: VENLAFAXINE XR 75 MG CAP.SR.24H PO SCH (09:07)
[2017-02-25] MEDS: FUROSEMIDE 20 MG TABLET PO SCH (09:07)
[2017-02-25] MEDS: LEVETIRACETAM 500 MG TABLET PO SCH (09:07)
[2017-02-25] MEDS: CHOLECALCIFEROL 1,000 UNIT TABLET PO SCH ×2 (09:07→12:44)
[2017-02-25] MEDS: AMLODIPINE 5 MG TABLET PO SCH (09:07)
[2017-02-25 09:08] VITALS: BP 134/70
[2017-02-25] MEDS: METOPROLOL TARTRATE 25 MG TABLET PO SCH (09:08)
[2017-02-25] MEDS: PRESERVISION AREDS 2 FORMULA PO SCH (09:08)
[2017-02-25] MEDS ORDERED: ONDANSETRON 4 MG/2 ML VIAL IV PRN (12:00)
[2017-02-25] MEDS ORDERED: ONDANSETRON HCL 4 MG TABLET PO PRN (12:00)
--- NOTE | 2017-02-25 14:25 | NUR ---
pt discharged at 1330. pt left with family. all belongings reconciled. pt given discharge instructions to patient regarding home health, medications, and used exitcare with instruction such as fall prevention, easy to read syncope, and smoking cessation. pt verbalizes understanding. pt left with commode, walker and wheelchair upon discharge. pt vitals temp 97.7 hr 64 rr 14 o2 sat 95% bp 128/68. pt asymptomatic. no signs of acute distress. pt helped in tranfers from wheelchair to car. Addendum: 02/25/17 at 1704 by ELIEZER BERRY RN PT WOUNDS HAVE HEALED ON LEFT AND RIGHT ELBOWS. PT HAS NO NEW INJURIES. PT WOUND PHOTO ON CHART. NO SIGNS OF INFECTIONS.
== END 2017-02-25 13:30 | disposition home health service (06) | DRG 54 ==
PROVIDERS: ADMIT Physical Medicine & Rehabilitation Pain Medicine; ATTEND Physical Medicine & Rehabilitation Pain Medicine
DX: C79.31 Secondary malignant neoplasm of brain (principal); G93.40 Encephalopathy, unspecified; E43 Unspecified severe protein-calorie malnutrition; C78.00 Secondary malignant neoplasm of unspecified lung; I11.0 Hypertensive heart disease with heart failure; I50.42 Chronic combined systolic (congestive) and diastolic (congestive) heart failure; D69.6 Thrombocytopenia, unspecified; E83.42 Hypomagnesemia; J98.11 Atelectasis; C73 Malignant neoplasm of thyroid gland; G40.909 Epilepsy, unspecified, not intractable, without status epilepticus; Z92.21 Personal history of antineoplastic chemotherapy; R26.9 Unspecified abnormalities of gait and mobility; Z91.81 History of falling; R41.89 Other symptoms and signs involving cognitive functions and awareness; R90.82 White matter disease, unspecified; E53.8 Deficiency of other specified B group vitamins; E89.0 Postprocedural hypothyroidism; F32.9 Major depressive disorder, single episode, unspecified; I27.2 Other secondary pulmonary hypertension; I08.0 Rheumatic disorders of both mitral and aortic valves; I44.7 Left bundle-branch block, unspecified; Z86.73 Personal history of transient ischemic attack (TIA), and cerebral infarction without residual deficits; I70.0 Atherosclerosis of aorta; I77.810 Thoracic aortic ectasia; K21.9 Gastro-esophageal reflux disease without esophagitis; N40.0 Benign prostatic hyperplasia without lower urinary tract symptoms; R73.03 Prediabetes; G25.2 Other specified forms of tremor; G47.00 Insomnia, unspecified
CPT/HCPCS: 36415; 70030-TC; 82306; 83735; 84100; 84443; 85025; 85610; 92523; 97110; 97112; 97116; 97165; 97530; 97535; J3420; Q0162